=== PATIENT | female | born 1960 | race American Indian/Alaskan Native ===

== ENCOUNTER 2019-04-22 18:47 | Emergency (ER) | payer OTHER ==
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
[2019-04-22 19:28] VITALS: BP 126/71
--- NOTE | 2019-04-22 20:51 | XRay Report ---
LUMBAR SPINE 3 VIEWS INDICATION / CLINICAL INFORMATION: low back pain. COMPARISON: None available. FINDINGS: There are 6 nonrib-bearing, segmented vertebrae. The sixth is a transitional vertebra. Moderate degenerative change of the posterior elements in the lower lumbar spine. No acute fracture o r subluxation. IMPRESSION: Degenerative changes, but no acute abnormality. Signer Name: Medardo Turner MD Signed: 04/22/2019 8:46 PM Workstation Name: [id number]
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
== END 2019-04-22 23:00 | disposition home or self-care (01) ==
LOC: ED 18:47
DX: M54.5 Low back pain (principal); I10 Essential (primary) hypertension; Z79.899 Other long term (current) drug therapy; Z87.891 Personal history of nicotine dependence; V49.9XXA Car occupant (driver) (passenger) injured in unspecified traffic accident, initial encounter; Y93.89 Activity, other specified; Y92.488 Other paved roadways as the place of occurrence of the external cause; Y99.8 Other external cause status
CPT/HCPCS: 72100; 99283